=== PATIENT | male | born 1985 | race Caucasian/White ===

== ENCOUNTER 2023-03-17 14:51 | Emergency (ER) | payer OTHER ==
[~2023-03-17] VITALS: Ht 188 cm; Wt 76.7 kg
[~2023-03-17 14:51] MED LIST: KEFLEX500 MG PO; NAPROXEN250 MG PO; NORCO 5-325 TA1 EACH PO
[2023-03-17] MEDS ORDERED: HYDROXYZINE HCL25 MG (17:21)
[2023-03-17 18:49] VITALS: BP 108/67
== END 2023-03-17 18:45 | disposition home or self-care (01) ==
LOC: ED 14:51
DX: S84.92XA Injury of unspecified nerve at lower leg level, left leg, initial encounter (principal); X58.XXXA Exposure to other specified factors, initial encounter; Z87.891 Personal history of nicotine dependence; Z79.899 Other long term (current) drug therapy
CPT/HCPCS: 99283

== ENCOUNTER 2023-07-11 09:23 | Emergency (ER) | payer OTHER ==
[~2023-07-11] VITALS: Ht 188 cm; Wt 77.0 kg
[~2023-07-11 09:23] MED LIST changes: +HYDROXYZINE HCL25 MG
--- OUTSIDE RECORDS SUMMARY | 2023-07-11 09:30 | XMS ---
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- Dentist: [employer] [facility] PHONE: [phone] [facility] [place]/Center: [facility] ([facility]) PHONE: [phone] Niels has no Care Guidelines for this patient. Shahzad VISIT COUNT (12 MO.) [address] Cathy Esteban) TOTAL 4 NOTE: Visits indicate total known visits. ED/UCC VISIT TRACKING (12 MO.) 07/11/2023 09:23 TALIA Ornelas TYPE: Emergency COMPLAINT: - POSS OVERDOSE 07/06/2023 19:13 [facility] Cathy BOSS (Eulalia Esteban) TYPE: Emergency DIAGNOSES: - Abrasion of other part of head, initial encounter - Fall 03/17/2023 14:52 TALIA [place]aud [place] TYPE: Emergency COMPLAINT: - SHOULDER PAIN/ NO INJ DIAGNOSES: - Exposure to other specified factors, initial encounter - Injury of unspecified nerve at lower leg level, left leg, initial encounter - Other long distance operator (current) drug therapy - Pain in left shoulder - Personal history of nicotine dependence [facility] Emergency DIAGNOSES: - Procedure and treatment not carried out due to patient leaving prior to being seen by health care provider - ambulance - Dizziness - Headache (Adult - New Onset Or New Symptoms) INPATIENT VISIT TRACKING (12 MO.) No inpatient visits to display in this time frame [email or web address]
[2023-07-11] MEDS ORDERED: NARCAN4 MG NAS (10:05)
[2023-07-11] MEDS ORDERED: NALOXONE 4 MG NASAL SPRAY #2 HOME.PACK NAS ONE (11:00)
[2023-07-11 11:14] VITALS: BP 129/81
== END 2023-07-11 11:13 | disposition home or self-care (01) ==
LOC: ED 09:23
DX: T40.411A Poisoning by fentanyl or fentanyl analogs, accidental (unintentional), initial encounter (principal); J45.909 Unspecified asthma, uncomplicated; Z87.891 Personal history of nicotine dependence; Z79.899 Other long term (current) drug therapy
CPT/HCPCS: 99284; J3490